=== PATIENT | male | born 1965 | race Caucasian/White ===

== ENCOUNTER 2023-10-04 16:58 | Inpatient (IN) | payer OTHER ==
[2023-10-04 18:41] LABS: BASO % 0.9 % (0-2.0); EOS % 0.8 % (0-4.5); HEMOGLOBIN 13.4 GM/dL (11.7-16.9); LYMPH % 17.5 % (8-40); MCH 29.1 pg (25.7-33.7); MCHC 34.4 g/dl (32.0-35.9); MEAN CELL VOLUME 84.7 fl (80-96); NEUT % 72.8 % (42.8-82.8); PLATELET COUNT 282 10^3/uL (134-434); RBC 4.61 M/mm3 (4.00-5.60)
[2023-10-04 18:48] LABS: INR 1.31 (0.83-1.09); PROTHROMBIN TIME (PATIENT) 15.1 SEC (9.7-13.0)
[2023-10-04 18:56] LABS: POTASSIUM 3.9 mmol/L (3.5-5.1)
[2023-10-04 18:58] LABS: ALBUMIN 3.8 g/dl (3.4-5.0); BLOOD UREA NITROGEN 28.3 mg/dL (7-18); CALCIUM 9.2 mg/dL (8.5-10.1); MAGNESIUM 2.2 mg/dL (1.8-2.4)
[2023-10-04 19:01] LABS: CREATININE 1.7 mg/dL (0.55-1.3)
[2023-10-04 19:02] LABS: BILIRUBIN,TOTAL 0.6 mg/dL (0.2-1)
[2023-10-04 19:04] LABS: TOT PROT 7.5 g/dl (6.4-8.2)
[2023-10-04 19:07] LABS: N-TERMINAL BNP 111.2 pg/ml (5-125)
[2023-10-04 19:24] LABS: ACTIVATED PTT 34.3 SECONDS (25.2-36.5)
[2023-10-04] MEDS ORDERED: ACETAMINOPHEN INJECTION 100 ML IVPB ONE (19:57)
[2023-10-04] MEDS: ACETAMINOPHEN 1000 MG/100 ML BAG IVPB ONE (20:02)
[2023-10-05] MEDS ORDERED: PATIENT'S OWN MEDICATION (NON-FORMULARY) (Oxycodone Hcl/Acetaminophen [Endocet 10-325 Mg T PO PRN (03:42)
[2023-10-05 03:49] VITALS: RESP 18; BMI 34.9
[2023-10-05] MEDS: ACETAMINOPHEN 325 MG TABLET (FP) PO PRN (04:11)
[2023-10-05] MEDS ORDERED: ACETAMINOPHEN 325 MG TABLET (FP) PO PRN ×2 (04:15→10:53)
[2023-10-05] MEDS: LACTATED RINGERS SOLUTION 1,000 ML/1,000 ML INFUS.BAG IV SCH (05:35)
[2023-10-05] MEDS: GABAPENTIN 300 MG CAPSULE PO SCH (05:36)
[2023-10-05 07:37] LABS: BASO % 1.2 % (0-2.0); EOS % 0.5 % (0-4.5); HEMATOCRIT 39.2 % (35.4-49); HEMOGLOBIN 13.5 GM/dL (11.7-16.9); LYMPH % 20.7 % (8-40); MCHC 34.5 g/dl (32.0-35.9); MEAN CELL VOLUME 84.2 fl (80-96); MEAN PLT VOLUME 7.3 fl (7.5-11.1); MONO % 8.1 % (3.8-10.2); NEUT % 69.5 % (42.8-82.8); PLATELET COUNT 269 10^3/uL (134-434); RBC 4.66 M/mm3 (4.00-5.60); WHITE BLOOD COUNT 8.3 K/mm3 (4.0-10.0)
[2023-10-05 07:49] LABS: POTASSIUM 3.8 mmol/L (3.5-5.1)
[2023-10-05 07:52] LABS: BLOOD UREA NITROGEN 32.1 mg/dL (7-18); CALCIUM 9.3 mg/dL (8.5-10.1); MAGNESIUM 2.1 mg/dL (1.8-2.4)
[2023-10-05 07:55] LABS: CREATININE 1.2 mg/dL (0.55-1.3); PHOSPHOROUS 2.7 mg/dL (2.5-4.9)
[2023-10-05 07:57] LABS: BILIRUBIN,TOTAL 0.8 mg/dL (0.2-1); TOT PROT 7.7 g/dl (6.4-8.2)
[2023-10-05] MEDS: amLODIPine BESYLATE 2.5 MG TABLET (FP) PO ONE (09:10)
[2023-10-05] MEDS ORDERED: PATIENT'S OWN MEDICATION (NON-FORMULARY) (Tizanidine Hcl [Tizanidine Hcl] 4 MG Tablet) PO SCH (10:00)
[2023-10-05] MEDS: oxyCODONE HCL 5 MG TABLET PO PRN (10:38)
[2023-10-05] MEDS: VALSARTAN 160 MG TABLET PO SCH (10:40)
[2023-10-05] MEDS: APIXABAN 5 MG TABLET PO SCH (10:40)
[2023-10-05] MEDS: ASPIRIN COATED 81 MG TABLET.EC PO SCH (10:40)
[2023-10-05] MEDS: ESCITALOPRAM OXALATE 10 MG TABLET PO SCH (10:40)
[2023-10-05] MEDS: PANTOPRAZOLE 40 MG TABLET PO SCH (10:40)
[2023-10-05] MEDS: SODIUM CHLORIDE 500 ML IV STA (12:48)
[2023-10-05 15:23] VITALS: BP 140/78; PULSE 80; TEMP 98.3
[2023-10-05] MEDS ORDERED: amLODIPine BESYLATE 5 MG TABLET (FP) PO SCH (22:00)
[2023-10-06] MEDS ORDERED: amLODIPine BESYLATE 5 MG TABLET (FP) PO SCH (22:00)
== END 2023-10-05 16:54 | disposition home or self-care (01) | DRG 204 ==
LOC: JER 16:58 → JERBED 18:42 → OBSVTOIN 23:32 → J4S 10-05 03:15
PROVIDERS: ADMIT Internal Medicine; ATTEND Internal Medicine
DX: I95.1 Orthostatic hypotension (principal); Z86.74 Personal history of sudden cardiac arrest; I25.10 Atherosclerotic heart disease of native coronary artery without angina pectoris; I48.91 Unspecified atrial fibrillation; Z79.01 Long term (current) use of anticoagulants; I10 Essential (primary) hypertension; E86.9 Volume depletion, unspecified; M25.562 Pain in left knee
CPT/HCPCS: 0241U-QW; 36415; 70450-TC; 71045-TC-FY; 73562-TC-LT-FY; 80053; 83735; 83880; 84100; 84484; 85025; 85610; 85730; 93005; 93010; 99285-25; G0378; J0131